=== PATIENT | male | born 1995 | race Hispanic/Latino ===

== ENCOUNTER 2023-07-19 05:46 | Day surgery (SDC) | payer OTHER ==
[2023-07-15 10:11] LABS: BASOPHILS # (AUTO) 0.04 K/uL (0.00-0.20); BASOPHILS % (AUTO) 0.7 % (0.0-5.0); EOSINOPHILS # (AUTO) 0.07 K/uL (0.00-0.70); EOSINOPHILS % (AUTO) 1.2 % (0.0-8.0); HEMATOCRIT 44.1 % (42-54); IMMATURE GRANULOCYTE ABSOLUTE 0.01 K/uL (0-1); LYMPHOCYTES # (AUTO) 1.8 K/uL (1.0-4.8); LYMPHOCYTES % (AUTO) 31.1 % (21.0-51.0); MEAN CORPUSCULAR VOLUME 88.2 fL (79-99); MONOCYTES # (AUTO) 0.5 K/uL (0.1-1.0); MONOCYTES % (AUTO) 8.2 % (3.0-13.0); NEUTROPHILS # (AUTO) 3.4 K/uL (1.8-7.7); NEUTROPHILS % (AUTO) 58.6 % (40.0-77.0); PLATELET COUNT (AUTO) 257 K/uL (130-400); RED CELL DISTRIBUTION WIDTH 11.7 % (11.0-15.5); WHITE BLOOD COUNT (AUTO) 5.9 K/uL (4.8-10.8)
[2023-07-15 10:22] LABS: INR 0.94 (0.85-1.15); PROTHROMBIN TIME 10.9 SEC (9.6-11.6)
[2023-07-15 10:23] LABS: CREATININE 0.9 mg/dL (0.5-1.5); POTASSIUM 4.1 mmol/L (3.5-5.1)
[2023-07-15 10:58] VITALS: BP 136/74; PULSE 64; RESP 16
[2023-07-19] VITALS (17 sets, daily range): BP systolic 107–132; BP diastolic 45–78; PULSE 59–74; RESP 14–18
[~2023-07-19] VITALS: Ht 165.1 cm; Wt 89.1 kg
[~2023-07-19 05:46] MED LIST: ARIP20TA PO; HYDR50CA50 PO; VENL-191 PO
[2023-07-19] MEDS ORDERED: LACTATED RINGERS 1000ML 1,000 ML IV ONE (06:10)
[2023-07-19] MEDS ORDERED: LIDOCAINE PF 100MG/5ML (2%) SYRINGE 5ML ONE (06:44)
[2023-07-19] MEDS ORDERED: FENTANYL CITRATE PF 50 MCG/1 ML 5ML AMP IV ONE (06:44)
[2023-07-19] MEDS ORDERED: PROPOFOL 10 MG/ML 20ML VIAL IV ONE (06:44)
[2023-07-19] MEDS ORDERED: ROCURONIUM BROMIDE 10MG/1ML 5ML VL ONE ×2 (06:44→08:09)
[2023-07-19] MEDS ORDERED: MIDAZOLAM HCL 1 MG/ML 2ML VIAL ONE (06:44)
[2023-07-19] MEDS ORDERED: ROPIVACAINE 0.5% 5MG/ML 30ML ONE (06:48)
[2023-07-19] MEDS: CEFAZOLIN SODIUM 2 GM VIAL ONE (06:52)
[2023-07-19] MEDS ORDERED: EPINEPHRINE PF 1MG (1:1,000) 1 MG/ML AMP ONE (06:57)
[2023-07-19] MEDS: EPINEPHRINE 1 MG/ML 30ML VIAL IJ ONE (07:16)
[2023-07-19] MEDS ORDERED: PHENYLEPHRINE HCL 10 MG/ML 1ML VIAL IV ONE ×2 (07:44→07:47)
[2023-07-19] MEDS: CEFAZOLIN SODIUM 2 GM VIAL IVPB ONE (07:45)
[2023-07-19] MEDS ORDERED: ONDANSETRON 4MG INJ ONE (07:47)
[2023-07-19] MEDS ORDERED: NEOSTIGMINE METHYLSULFATE 1MG/ML IV ONE (09:15)
[2023-07-19] MEDS ORDERED: GLYCOPYRROLATE 0.2 MG/ML 5 ML VIAL ONE (09:15)
[2023-07-19] MEDS ORDERED: DOCU-116 PO (10:26)
[2023-07-19] MEDS ORDERED: HYDR-4060 PO (10:26)
[2023-07-19] MEDS: KETOROLAC 30MG VIAL (30MG/ML) ONE (11:04)
== END 2023-07-19 12:20 | disposition home or self-care (01) ==
LOC: DAH 05:46
PROVIDERS: ATTEND Student in an Organized Health Care Education/Training Program
DX: S43.431A Superior glenoid labrum lesion of right shoulder, initial encounter (principal); M75.21 Bicipital tendinitis, right shoulder; M25.511 Pain in right shoulder; M62.81 Muscle weakness (generalized); F12.90 Cannabis use, unspecified, uncomplicated; F41.8 Other specified anxiety disorders; Z80.8 Family history of malignant neoplasm of other organs or systems; Z87.891 Personal history of nicotine dependence; Z79.891 Long term (current) use of opiate analgesic
CPT/HCPCS: 80048; 85025; 85610; 85730; 36415; 29828; 64415; 82948; A4663; J7120 ×2; A4565; J3010; J0171 ×2; J3490 ×3; J2001; J2250; J2704; J2405; J1885; J2710; J2795; J2371; J0690 ×2; A6223; A4930 ×2; A4649 ×2; C1713 ×2; A5120; A4215; A4222; A4221; A4600